=== PATIENT | female | born 1995 | race African-American/Black ===

== ENCOUNTER 2020-03-10 03:07 | Inpatient (IN) ==
[2020-03-10 03:51] LABS: Apearance,Urine Slightly Hazy (Clear); Bacteria,Urine Few /HPF (Few); Bilirubin,Urine Negative (Negative); Blood, Urine Negative (Negative); Glucose,Urine (UA) Negative (Negative); Ketones,Urine Negative (Negative); Mucus,Urine Occasional /LPF (Occasional); Nitrite,Urine Negative (Negative); Protein,Urine Negative; RBC,Urine 1 /HPF (0-4); Squamous Epithelial Cell,Urine Occasional /HPF (0-10); Urine Color Straw (Yellow); Urine Specific Gravity 1.004 (1.001-1.035); Urine Urobilinogen < 2.0 EU/DL (0.2-1.0); WBC,Urine 20 /HPF (0-6)
[2020-03-10] MEDS ORDERED: LACTATED RINGERS 1,000 ML IV ONE (04:06)
[2020-03-10] MEDS ORDERED: LEVOFLOXACIN INJ 500 MG in PREMIX 1 EACH IV ONE (04:06)
[2020-03-10 04:10] LABS: Barbiturates Screen,Urine Negative (Negative); Benzodiazepines Screen,Urine Negative (Negative); Cannabinoid Screen,Urine Negative (Negative); Opiate Screen,Urine Negative (Negative); Phencyclidine Screen,Urine Negative (Negative)
[2020-03-10] MEDS ORDERED: MEPERIDINE 50 MG/1 ML VIAL IV ONE (05:31)
[2020-03-10] MEDS ORDERED: ONDANSETRON 4 MG/2 ML VIAL IV ONE (05:32)
[2020-03-10] MEDS ORDERED: CITRIC ACID/SODIUM CITRATE 30 ML UDCUP PO ONE (07:50)
[2020-03-10] MEDS ORDERED: FAMOTIDINE 20 MG/2 ML VIAL IV ONE (07:50)
[2020-03-10] MEDS ORDERED: ceFAZolin 2,000 MG in PREMIX 1 EACH IV ONE (07:50)
[2020-03-10] MEDS ORDERED: OXYTOCIN 10 UNIT/ML VIAL IM ONE (07:52)
[2020-03-10] MEDS ORDERED: OXYTOCIN/LR 30 UNIT/1,000 ML BAG IV ONE (07:52)
[2020-03-10] MEDS ORDERED: LACTATED RINGERS 1,000 ML IV SCH (08:00)
[2020-03-10 08:11] LABS: Hemoglobin 9.2 GM/DL (12.0-16.0); Mean Corpuscular Volume 80.3 FL (87-102); NRBC # 0.03 10*3/uL
[2020-03-10] MEDS ORDERED: miSOPROStoL 200 MCG TABLET ONE (08:29)
[2020-03-10] MEDS ORDERED: METHYLERGONOVINE 0.2 MG/1 ML AMP ONE (08:30)
[2020-03-10] MEDS ORDERED: CARBOPROST TROMETHAMINE 250 MCG/ML AMP IM ONE (08:30)
[2020-03-10 08:44] LABS: Basophils % 0.3 % (0.0-0.8); Eosinophils # 0.1 10*3/uL (0.0-0.87); Eosinophils % 0.4 % (0.00-10.9); Hematocrit 29.7 VOL% (35.7-47.0); Immature Granulocytes % 1.3 %; Immature Granulocytes Absolute 0.14 #; Lymphocytes # 2.5 10*3/uL (1.4-4.0); Lymphocytes % 22.3 % (21.3-54.2); Neutrophils % 66.7 % (38.7-73.9); Platelet Count 241 T/CUMM (130-400); Red Cell Distribution Width 15.7 % (9.3-17.3); White Blood Count 11.2 T/CUMM (4-12)
[2020-03-10] MEDS ORDERED: PHENYLEPHRINE 1 MG/10 ML SYRINGE IV ONE (08:44)
[2020-03-10] MEDS ORDERED: ONDANSETRON 4 MG/2 ML VIAL ONE (08:44)
[2020-03-10] MEDS ORDERED: BUPIVACAINE SPINAL 0.75% 2 ML AMP SPINAL ONE (08:44)
[2020-03-10] MEDS ORDERED: MORPHINE 10 MG/10 ML VIAL ONE (08:44)
[2020-03-10] MEDS ORDERED: ROPIVACAINE 0.5% 30 ML VIAL ONE (08:44)
[2020-03-10 09:50] LABS: Cord Arterial Blood HCO3 22.4 MMOL/L
[2020-03-10 09:51] LABS: Cord Venous Blood HCO3 23.5 MMOL/L; Cord Venous Blood PCO2 39.6 MMHG
[2020-03-10 09:55] LABS: Cord Venous Blood HCO3 23.1 MMOL/L; Cord Venous Blood PCO2 40.2 MMHG; Cord Venous Blood PO2 25.6
[2020-03-10] MEDS ORDERED: RHO(D) IMMUNE GLOBULIN 300 MCG SYRINGE IM ONE (10:12)
[2020-03-10] MEDS ORDERED: OXYTOCIN/LR 20 UNIT/1,000 ML BAG IV ONE (10:12)
[2020-03-10] MEDS ORDERED: ACETAMINOPHEN 325 MG TABLET PO PRN (10:12)
[2020-03-10] MEDS ORDERED: ONDANSETRON 4 MG/2 ML VIAL IV PRN (10:12)
[2020-03-10] MEDS ORDERED: MAGNESIUM HYDROXIDE SUSP 30 ML UDCUP PO PRN (10:12)
[2020-03-10 10:24] LABS: Apearance,Urine CLEAR (Clear); Bacteria,Urine Occasional /HPF (Few); Bilirubin,Urine Negative (Negative); Blood, Urine Negative (Negative); Glucose,Urine (UA) Negative (Negative); Ketones,Urine Negative (Negative); Nitrite,Urine Negative (Negative); Protein,Urine Negative; Urine Color Straw (Yellow); Urine Specific Gravity 1.005 (1.001-1.035); Urine Urobilinogen < 2.0 EU/DL (0.2-1.0); WBC,Urine 1 /HPF (0-6)
[2020-03-10] MEDS: ACETAMINOPHEN 500 MG TABLET PO SCH ×2 (11:56→18:10)
[2020-03-10] MEDS: KETOROLAC 30 MG/1 ML VIAL IV SCH ×2 (11:57→18:10)
[2020-03-10] MEDS: ceFAZolin 1,000 MG in SYRINGE 1 EACH IV SCH (15:52)
[2020-03-10] MEDS: METOCLOPRAMIDE 10 MG/2 ML VIAL IV SCH (16:30)
[2020-03-10] MEDS: LACTATED RINGERS 1,000 ML IV SCH ×2 (17:06→20:59)
[2020-03-10 17:14] LABS: Basophils % 0.2 % (0.0-0.8); Hematocrit 27.4 VOL% (35.7-47.0); Hemoglobin 8.7 GM/DL (12.0-16.0); Immature Granulocytes % 0.6 %; Immature Granulocytes Absolute 0.11 #; Lymphocytes # 1.3 10*3/uL (1.4-4.0); Lymphocytes % 7.1 % (21.3-54.2); Mean Corpuscular HGB Conc 31.8 GM/DL (32-36); Mean Corpuscular Volume 78.3 FL (87-102); Monocytes % 4.1 % (1.7-12.7); Platelet Count 227 T/CUMM (130-400); Red Cell Distribution Width 15.7 % (9.3-17.3)
[2020-03-10 17:26] LABS: White Blood Count 17.8 T/CUMM (4-12)
[2020-03-10] MEDS: DOCUSATE SODIUM 100 MG CAPSULE PO SCH (21:00)
[2020-03-11] MEDS: METOCLOPRAMIDE 10 MG/2 ML VIAL IV SCH ×3 (00:05→16:47)
[2020-03-11] MEDS: ceFAZolin 1,000 MG in SYRINGE 1 EACH IV SCH (00:05)
[2020-03-11] MEDS: ACETAMINOPHEN 500 MG TABLET PO SCH ×2 (00:05→05:52)
[2020-03-11 05:32] LABS: Basophils % 0.1 % (0.0-0.8); Eosinophils # 0.1 10*3/uL (0.0-0.87); Eosinophils % 0.3 % (0.00-10.9); Hematocrit 23.6 VOL% (35.7-47.0); Hemoglobin 7.4 GM/DL (12.0-16.0); Immature Granulocytes % 0.8 %; Immature Granulocytes Absolute 0.12 #; Lymphocytes # 2.8 10*3/uL (1.4-4.0); Lymphocytes % 18.7 % (21.3-54.2); Mean Corpuscular HGB Conc 31.4 GM/DL (32-36); Mean Corpuscular Volume 78.7 FL (87-102); Mean Platelet Volume 11.3 FL (9.6-12.0); Monocytes % 9.1 % (1.7-12.7); Platelet Count 221 T/CUMM (130-400); Red Cell Distribution Width 15.6 % (9.3-17.3); White Blood Count 15.1 T/CUMM (4-12)
[2020-03-11] MEDS: IBUPROFEN 800 MG TABLET PO PRN ×3 (05:52→23:35)
[2020-03-11] MEDS: MULTIVITAMIN (PRENATAL) TABLET PO SCH (08:10)
[2020-03-11] MEDS: DOCUSATE SODIUM 100 MG CAPSULE PO SCH ×2 (08:10→21:05)
[2020-03-11] MEDS: FERROUS SULFATE 325 MG TABLET PO SCH ×3 (08:10→21:05)
[2020-03-11] MEDS: SIMETHICONE CHEW 80 MG TABLET PO PRN ×2 (08:10→16:00)
[2020-03-11] MEDS ORDERED: SODIUM CHLORIDE 0.9% 1,000 ML IV PRN (14:59)
[2020-03-12] MEDS: METOCLOPRAMIDE 10 MG/2 ML VIAL IV SCH (04:38)
[2020-03-12 04:56] LABS: Basophils % 0.3 % (0.0-0.8); Eosinophils # 0.1 10*3/uL (0.0-0.87); Eosinophils % 0.7 % (0.00-10.9); Hematocrit 29.3 VOL% (35.7-47.0); Hemoglobin 9.5 GM/DL (12.0-16.0); Immature Granulocytes % 0.9 %; Immature Granulocytes Absolute 0.13 #; Lymphocytes # 2.9 10*3/uL (1.4-4.0); Lymphocytes % 19.9 % (21.3-54.2); Mean Corpuscular HGB Conc 32.4 GM/DL (32-36); Mean Corpuscular Volume 79.4 FL (87-102); Mean Platelet Volume 10.1 FL (9.6-12.0); Monocytes % 10.3 % (1.7-12.7); NRBC # 0.03 10*3/uL; Neutrophils % 67.9 % (38.7-73.9); Platelet Count 232 T/CUMM (130-400); Red Blood Count 3.69 MC/CUMM (3.8-5.5); Red Cell Distribution Width 15.9 % (9.3-17.3); White Blood Count 14.5 T/CUMM (4-12)
[2020-03-12] MEDS: IBUPROFEN 800 MG TABLET PO PRN ×2 (09:10→21:41)
[2020-03-12] MEDS: FERROUS SULFATE 325 MG TABLET PO SCH ×3 (09:10→21:41)
[2020-03-12] MEDS: MULTIVITAMIN (PRENATAL) TABLET PO SCH (09:10)
[2020-03-12] MEDS: DOCUSATE SODIUM 100 MG CAPSULE PO SCH ×2 (09:10→21:41)
[2020-03-13 09:07] VITALS: BP 114/68
[2020-03-13] MEDS: MULTIVITAMIN (PRENATAL) TABLET PO SCH (09:50)
[2020-03-13] MEDS: FERROUS SULFATE 325 MG TABLET PO SCH ×2 (09:50→15:01)
[2020-03-13] MEDS: DOCUSATE SODIUM 100 MG CAPSULE PO SCH (10:00)
[2020-03-13] MEDS ORDERED: DIPH/TET/ACEL PERT BOOSTER VACCINE 0.5 ML VIAL IM ONE (11:14)
== END 2020-03-13 16:30 | disposition home or self-care (01) | DRG 786 ==
LOC: N.LDOUT 03:07 → N.LD 03:08 → N.OB 16:25
PROVIDERS: ADMIT Obstetrics & Gynecology; ATTEND Obstetrics & Gynecology
PROC: LDCSECT (ICD-10-PCS; 2020-03-10 09:00)